=== PATIENT | female | born 1985 | race Hispanic/Latino ===

== ENCOUNTER 2024-09-23 20:54 | Emergency (ER) | payer OTHER, MEDICAID | END 2024-09-24 02:09 | disposition home or self-care (01) | LOC: CSHERS 20:54 | DX: S29.012A Strain of muscle and tendon of back wall of thorax, initial encounter (principal); V89.2XXA Person injured in unspecified motor-vehicle accident, traffic, initial encounter | CPT/HCPCS: 99283 ==